=== PATIENT | female | born 1995 | race Caucasian/White ===

== ENCOUNTER 2017-10-05 11:58 | Emergency (ER) | payer OTHER ==
[~2017-10-05] VITALS: Ht 175.3 cm; Wt 93.0 kg
[2017-10-05] MEDS ORDERED: VENTOLIN HFA18 GM INH (12:53)
[2017-10-05] MEDS ORDERED: IBUPROFEN600 MG PO (13:11)
== END 2017-10-05 13:31 | disposition home or self-care (01) ==
LOC: ED 11:58
DX: S93.401A Sprain of unspecified ligament of right ankle, initial encounter (principal); W10.9XXA Fall (on) (from) unspecified stairs and steps, initial encounter; J45.909 Unspecified asthma, uncomplicated; F17.200 Nicotine dependence, unspecified, uncomplicated
CPT/HCPCS: 73610; 99283

== ENCOUNTER 2018-09-02 17:28 | Emergency (ER) | payer OTHER ==
[~2018-09-02] VITALS: Ht 175.3 cm; Wt 95.7 kg
[~2018-09-02 17:28] MED LIST: HYDROCODON-ACE1 EA10 PO; IBUPROFEN600 MG PO; MOTRIN IB200 MG PO; TYLENOL325 MG PO; VENTOLIN HFA18 GM INH
--- OUTSIDE RECORDS SUMMARY | 2018-09-02 17:30 | XMS ---
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 Patty has no Care Guidelines for this patient. Fausto VISIT COUNT (12 MO.) 3 SEAMUS Bruce TOTAL 3 NOTE: Visits indicate total known visits. ED/C VISIT TRACKING (12 MO.) 09/02/2018 17:28 SEAMUS Miranda OR TYPE: Emergency COMPLAINT: - R HAND INJURY 12/26/2017 03:26 SEAMUS Miranda OR TYPE: Emergency COMPLAINT: - ABD PAIN 10/05/2017 11:59 SEAMUS Miranda OR TYPE: Emergency COMPLAINT: - R ANKLE PAIN/INJURY DIAGNOSES: - Fall (on) (from) unspecified stairs and steps, initial encounter - Sprain of unspecified ligament of right ankle, initial encounter - Nicotine dependence, unspecified, uncomplicated - Unspecified asthma, uncomplicated INPATIENT VISIT TRACKING (12 MO.) No inpatient visits to display in this time frame [email or web address]
[2018-09-02] MEDS ORDERED: ONDANSETRON ODT4 MG PO (17:43)
== END 2018-09-02 18:49 | disposition home or self-care (01) ==
LOC: ED 17:28
DX: S62.634A Displaced fracture of distal phalanx of right ring finger, initial encounter for closed fracture (principal); J45.909 Unspecified asthma, uncomplicated; Z88.5 Allergy status to narcotic agent; W23.0XXA Caught, crushed, jammed, or pinched between moving objects, initial encounter
CPT/HCPCS: 73140; 99283

== ENCOUNTER 2018-09-15 15:07 | Emergency (ER) | payer OTHER ==
[~2018-09-15] VITALS: Ht 175.3 cm; Wt 95.7 kg
[~2018-09-15 15:07] MED LIST changes: +ONDANSETRON ODT4 MG PO
--- OUTSIDE RECORDS SUMMARY | 2018-09-15 15:10 | XMS ---
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 Care History Medical/Surgical 09/04/2018 [facility] - Patient is currently established with [facility]. If patient is seen in the ED during business hours. Please contact CHWs at [facility]. Care Recommendation: This patient has had 5 or more Emergency Department visits in the last 12 months.\T\nbsp; Patient requires education on the scope and purpose of the ED as an acute care provider not a Primary Care Provider and should not be utilized for chronic conditions.\T\nbsp; These are guidelines and the provider should exercise clinical judgment when providing care. E.D. VISIT COUNT (12 MO[address] 4 [facility] TOTAL 4 NOTE: Visits indicate total known visits. ED/UCC VISIT TRACKING (12 MO.) 09/15/2018 15:07 SEAMUS Miranda OR TYPE: Emergency COMPLAINT: - ABD PAIN 09/02/2018 17:28 SEAMUS Miranda OR TYPE: Emergency COMPLAINT: - R HAND INJURY DIAGNOSES: - Unspecified injury of right wrist, hand and finger(s), initial encounter - Displaced fracture of distal phalanx of right ring finger, initial encounter for closed fracture - Caught, crushed, jammed, or pinched between moving objects, initial encounter - Unspecified asthma, uncomplicated - Allergy status to narcotic agent status 12/26/2017 03:26 SEAMUS Miranda OR TYPE: Emergency [...] visits to display in this time frame [email or web address]
[2018-09-15] MEDS ORDERED: NORCO 5-325 TA1 EACH PO (18:47)
[2018-09-15] MEDS ORDERED: KEFLEX500 MG PO (18:47)
[2018-09-15] MEDS ORDERED: ONDANSETRON ODT8 MG PO (18:47)
== END 2018-09-15 20:01 | disposition home or self-care (01) ==
LOC: ED 15:07
DX: N12 Tubulo-interstitial nephritis, not specified as acute or chronic (principal); Z88.5 Allergy status to narcotic agent
CPT/HCPCS: 76705; 80053; 81001; 83690; 84703; 85025; 96361; 96365; 96375; 99284-25; J0696; J1170; J1885; J2405; J7030

== ENCOUNTER 2019-10-30 23:25 | Inpatient (IN) | payer OTHER ==
[~2019-10-30] VITALS: Ht 274.3 cm; Wt 109.0 kg
[~2019-10-30 23:25] MED LIST changes: +KEFLEX500 MG PO; +NORCO 5-325 TA1 EACH PO; +ONDANSETRON ODT8 MG PO
[2019-10-31] MEDS ORDERED: PRENATAL VITAM1 EAC6 PO ×2 (03:39→03:43)
[2019-10-31] MEDS ORDERED: VENTOLIN HFA18 GM INH ×2 (03:42→03:43)
--- NOTE | 2019-10-31 11:53 | NUR ---
10/31/19 Yuli3 Shelly Oh 1142-PATIENT ARRIVED TO PACU ON RA AWAKE DENIES PAIN OR NAUSEA. RR EVEN. FUNDUS 1 BELOW UMBILICUS FIRM LIGHT RUBRA DRAINAGE ON BACILIO PAD. [place] CATHETER DRAINING YELLOW URINE. LR WITH 20 PITOCIN INFUSING. 1150-PATIENT FEEDING BABY FBC JESUS SOUZA AT BEDSIDE.
--- NOTE | 2019-11-01 08:58 | PR ---
[facility] [address] [facility] [place], [place] [address] Signed PP Progress Notes Datetime Report Generated by CPN: 11/01/2019 08:58 SUBJECTIVE: [id number] Pain: Within normal limits Nausea/Vomiting: Denies Vital Signs: [id number] Vital Signs: Reviewed; Within Normal Limits Notable Details: PP Hgb/Hct = 10.4/31.3 EXAM: [id number] Abdomen/Uterus: Normal Lochia: Normal Extremities: Normal Incision: Normal IMPRESSION/PLAN/PROCEDURES: [id number] Impression: Normal progression Plan: Continue present management Procedures: None Progress Notes: Doing well, without complaint, tolerating food well, normal post-op tenderness. Will d/c Kwong today and increase activitiy. Signing Physician: Sandy Maldonado MD Copies: ~ *Electronically Signed* 11/01/19 0858 SANDY MALDONADO MD PATIENT NAME: ENRICO SILVERIO PROGRESS NOTE DATE OF : 95 PHYSICIAN: SANDY MALDONADO MD RPT #: [id number] REPORT IS CONFIDENTIAL AND NOT TO BE RELEASED WITHOUT AUTHORIZATION
--- NOTE | 2019-11-01 08:59 | OR ---
[facility] [address] [place], [place] [address] Signed DATE OF OPERATION: 10/31/2019 SURGEON: Fernando Montague MD PREOPERATIVE DIAGNOSIS: Breech presentation, term labor. POSTOPERATIVE DIAGNOSIS: Breech presentation, term labor. PROCEDURE: Primary low-transverse segment section, delivery of live male infant. SURGEON: Fernando Montague MD ASSOCIATE DEAN: Dr. Gentile. ANESTHESIA: Epidural. ESTIMATED BLOOD LOSS: 500 mL. COMPLICATIONS: None. DRAINS: Kwong to bladder. FINDINGS: Live male infant in breech RSA presentation, Apgars 9 and 9. Weight 7 pounds 11 ounces. Normal uterus. Normal tubes and ovaries bilateral. DESCRIPTION OF PROCEDURE: The patient was brought to the operating room, placed in supine position. After adequate epidural anesthesia was obtained, was prepped and draped in usual sterile fashion. Patient already had Kwong catheter in place. A Pfannenstiel skin incision was made with a scalpel and extended through subcutaneous tissue using Bovie. The fascia Electronically Signed By: FERNANDO MONTAGUE MD 11/01/19 0859 PATIENT NAME: ENRICO SILVERIO OPERATIVE REPORT DATE OF : 95 REPORT #: [id number] PHYSICIAN: FERNANDO MONTAGUE MD PCP: TRAVON ALONSO MD REPORT IS CONFIDENTIAL AND NOT TO BE RELEASED WITHOUT AUTHORIZATION [facility] [address] [place], [place] [address], [place] [address] Signed was nicked with scalpel and extended in transverse fashion using curved scissors. The underlying abdominal musculature was bluntly and sharply from the fascia above and below the incision. The abdominal musculature was bluntly and sharply along the midline. The peritoneum was grasped, hemostats elevated, nicked with scissors, extended in vertical fashion using scissors. The Josh self-retaining retractor was inserted into the incision and tightened in place. The lower uterine segment was identified and was noted to be wide from labor, so the lower uterine segment was carefully nicked with scalpel and extended in transverse fashion using finger dissection. The infant was noted to be in breech RSA presentation. The infant's buttocks were easily delivered from the incision. The legs individually delivered and the delivered back up to the shoulders where the arms were individually delivered and the head easily followed. The cord was doubly clamped and cut and the passed off table in good condition to awaiting nurse. Section of cord was obtained and then the placenta manually removed. Uterine cavity was explored a lap pad to remove any retained membranes. An angle stitch of 0 Monocryl was placed one in the incision and a running locking stitch of 0 Monocryl starting at the other end used to close the incision. A 2nd running stitch of 0 Monocryl was used to imbricate the 1st layer. A small amount of bleeding was noted at the right angle, so the finger was placed behind the broad ligament to make sure that the stitch did not go through and a simple stitch of 0 Monocryl placed at the angle and tied in place, this did control the bleeding and the entire pelvis was irrigated, suctioned, examined and any superficial bleeding spots cauterized with Bovie. When good hemostasis was obtained, the Josh self-retaining retractor was removed. A sheet of ACell placed over the lower uterine segment and then, the anterior wall peritoneum was closed using running stitch of 2-0 Vicryl suture. The abdominal musculature was reapproximated using interrupted stitches of 0 Vicryl suture. The abdominal wall incision was irrigated, suctioned and examined, any bleeding spots cauterized with the Bovie. Powdered ACell was then sprinkled on the abdominal musculature and then the fascia closed using two running stitch of 0 Vicryl suture meeting in the midline. Subcutaneous tissue was irrigated, suctioned, examined and any bleeding spots cauterized with the Bovie. Subcutaneous tissue was then closed using interrupted stitches of 3-0 Vicryl suture and skin were reapproximated using skin clips. The patient tolerated the procedure well and went to the recovery room in good condition. The sponge, needle and instrument count were correct at the end of the procedure. Fernando Montague MD MJB/MODL Electronically Signed By: FERNANDO MONTAGUE MD 11/01/19 0859 PATIENT NAME: ENRICO SILVERIO OPERATIVE REPORT DATE OF : 95 REPORT #: [id number] PHYSICIAN: FERNANDO MONTAGUE MD PCP: TRAVON ALONSO MD REPORT IS CONFIDENTIAL AND NOT TO BE RELEASED WITHOUT AUTHORIZATION [address] [address] Signed /[id number] Copies: ~ Electronically Signed By: FERNANDO MONTAGUE MD 11/01/19 0859 PATIENT NAME: ENRICO SILVERIO OPERATIVE REPORT DATE OF : 95 REPORT #: [id number] PHYSICIAN: FERNANDO MONTAGUE MD PCP: TRAVON ALONSO MD REPORT IS CONFIDENTIAL AND NOT TO BE RELEASED WITHOUT AUTHORIZATION
--- NOTE | 2019-11-02 11:50 | PR ---
[facility] [address] [facility] [place] [address] Signed PP Progress Notes Datetime Report Generated by CPN: 11/02/2019 11:49 SUBJECTIVE: [id number] Pain: Within normal limits Nausea/Vomiting: Denies Vital Signs: [id number] Vital Signs: Reviewed; Within Normal Limits Notable Details: PP Hgb/Hct = 10.4/31.3 EXAM: [id number] Abdomen/Uterus: Normal Lochia: Normal Extremities: Normal Incision: Normal IMPRESSION/PLAN/PROCEDURES: [id number] Impression: Normal progression Plan: Discharge Procedures: None Progress Notes: Doing well, ready to go home. Signing Physician: Sandy Maldonado MD Copies: ~ *Electronically Signed* 11/02/19 1149 SANDY MALDONADO MD PATIENT NAME: ENRICO SILVERIO PROGRESS NOTE DATE OF : 95 PHYSICIAN: SANDY MALDONADO MD RPT #: [id number] REPORT IS CONFIDENTIAL AND NOT TO BE RELEASED WITHOUT AUTHORIZATION
== END 2019-11-02 13:30 | disposition home or self-care (01) | DRG 787 ==
LOC: FBC 10-31 00:02
PROVIDERS: ADMIT General Practice
PROC: 00HU33Z Insertion of Infusion Device into Spinal Canal, Percutaneous Approach (ICD-10-PCS; 2019-10-31)
PROC: 3E0R3BZ Introduction of Anesthetic Agent into Spinal Canal, Percutaneous Approach (ICD-10-PCS; 2019-10-31)
PROC: 10D00Z1 Extraction of Products of Conception, Low, Open Approach (ICD-10-PCS; principal; 2019-10-31 10:30)
DX: O32.1XX0 Maternal care for breech presentation, not applicable or unspecified (principal); O99.324 Drug use complicating childbirth; Z37.0 Single live birth; O99.52 Diseases of the respiratory system complicating childbirth; J45.20 Mild intermittent asthma, uncomplicated; Z3A.39 39 weeks gestation of pregnancy; F12.90 Cannabis use, unspecified, uncomplicated; Z87.891 Personal history of nicotine dependence; Z88.5 Allergy status to narcotic agent; Z79.899 Other long term (current) drug therapy
CPT/HCPCS: 01961; 36415; 85027; A9270; J1170; J1644; J1885; J2001; J2405; J2590; J2795; J3010; J3105; J7121

== ENCOUNTER 2021-05-12 08:53 | Day surgery (SDC) | payer OTHER ==
[~2021-05-12] VITALS: Ht 175.3 cm; Wt 103.8 kg
[~2021-05-12 08:53] MED LIST changes: +AUGMENTIN 875-1 EACH PO; +HYDROCODON-ACE1 EA11 PO; +PRENATAL VITAM1 EAC6 PO
--- NOTE | 2021-05-12 10:28 | NUR ---
PT ALERT, ORIENTED AND SUPPORTED BY HER MOTHER. PT HERE FOR FIRST SCOPES. PT SOMEWHAT ANXIOUS, BUT ABLE TO EXPRESS NEEDS AND [facility]. MOTHER WILL REMAIN FOR DC. PT REQUESTED PRAYER, WILL FOLLOW NEEDED
--- NOTE | 2021-05-12 12:01 | NUR ---
05/12/21 1201 BRIANDA TOMLINSON 1140-PATIENT TO PACU ON 6KL VIA MASK. PATEINT IS NONAROUSABLE. STUDENT PREFORMING CHIN LIFT. 1144-PATIENT NONAROUSABLE TO TACTILE SITMULI. HOB ELEVATED, HEAD REPOSTIONED, RN DOING JAW THRUST. 1145-SALES DATA ANALYST PUTS IN ORAL AIRWAY 1146-ORAL AIRWAY REMOVED. PATIENT AWAKES TO PAINFUL STIMULI. AIRWAY PATENT. JAW THRUST STOPPED. O2 TITRATED OFF. 1150-PATIENT IS DROWSY. DENIES PAIN AND NAUSEA. RESP EVEN AND UNLABORED. O2 SATS IN THE HIGH 90'S TO 100% ON RA. 1155-PATIENT DROWSY. STATES HER THROAT HURTS. DENIES PAIN AT SURGICAL SITE. DENIES NAUSEA. PATIENT TAKING SIPS OF WATER.
--- NOTE | 2021-05-12 13:06 | OR ---
[facility] [address] [place], [place] [address] Signed DATE OF OPERATION: 05/12/2021 SURGEON: Winston Alcaraz MD LOCATION: [facility]. PREOPERATIVE DIAGNOSIS: Left facial mass. POSTOPERATIVE DIAGNOSIS: Left facial mass. PROCEDURE: Excision of left facial mass. ANESTHESIA: General LMA; SCREEN TENDER, Karolina/Allan. PREOPERATIVE HISTORY: Karolina is a 26-year-old young lady with a left facial mass for several months. This has been persistent, very tender, associated with some anterior cervical lymph nodes with persistence despite several courses of antibiotics. She has no obvious site of primary infection and she is taken to the operating room for the above-mentioned procedures. OPERATIVE PROCEDURE AND FINDINGS: After informed consent, the patient was taken to the operating room, placed in the supine position where general LMA anesthesia was induced. The patient and procedure were verified. Left facial mass in question was identified, marked with a marking pencil, so it was just in front of the left tragus measured about 2 cm in greatest diameter. The head and neck turned to the right. Left face sterilely prepped and draped. Incision was marked over the mass just in front of the tragus in the superior inferior direction. 1% lidocaine with epi was injected in the skin. Incision was made and a combination of blunt and sharp dissection carried down to find the mass deep to the fascia appeared to be in the substance of the parotid gland. Care was taken to avoid facial nerve branches. The mass was dissected free. It was a granular appearing grayish colored mass appeared to be completely excised about 2 cm in greatest diameter. The specimen was sent to pathology for lymphoma handling permanent sections. Hemostasis was verified. The incision was then closed with 4-0 interrupted Vicryl in the deep layer, subcu layer and 5-0 running nylon on the skin. The skin was cleansed. Neosporin was Electronically Signed By: WINSTON ALCARAZ MD 05/12/21 1306 PATIENT NAME: KAROLINA SILVERIO OPERATIVE REPORT DATE OF : 95 REPORT #: [id number] PHYSICIAN: WINSTON ALCARAZ MD PCP: TRAVON ALONSO MD REPORT IS CONFIDENTIAL AND NOT TO BE RELEASED WITHOUT AUTHORIZATION [address] [address] Signed applied. The patient was then awakened, extubated, and transported to the recovery room in good condition. COMPLICATIONS: None. BLOOD LOSS: Minimal. SPECIMEN: To pathology. DRAINS: None. Winston Alcaraz MD GC/MODL /[id number] Copies: ~ Electronically Signed By: WINSTON ALCARAZ MD 05/12/21 1306 PATIENT NAME: KAROLINA SILVERIO OPERATIVE REPORT DATE OF : 95 REPORT #: [id number] PHYSICIAN: WINSTON ALCARAZ MD PCP: TRAVON ALONSO MD REPORT IS CONFIDENTIAL AND NOT TO BE RELEASED WITHOUT AUTHORIZATION
--- NOTE | 2021-05-12 13:07 | NUR ---
1250: PATIENT BACK IN DAY SURGERY ROOM FROM PACU. RATES PAIN 3/10. LEFT CHEEK INCISION WITH BACITRACIN OINTMENT WNL. VS CHECKED. PATIENT DROWSY. SCDs ON. IV SITE WNL. SODA AT BEDSIDE. CALL LIGHT WITHIN REACH. SIGNIFICANT OTHER AT BEDSIDE.
--- NOTE | 2021-05-12 13:44 | NUR ---
1320: PT COMFORTABLE IN STRETCHER AT THIS TIME. REPORTS FEELING URGE TO VOID. DANGLES AT THE BEDSIDE, JOSE WELL. DENIES DIZZINESS AND SOB. AMBULATES TO BR WITH STANDBY ASSIST FROM THIS RN, STEADY GAIT. SUCCESSFUL FIRST POST OP VOID, 600ML. BACK TO ROOM 11. NO FURTHER NEEDS VOICED, CALL LIGHT WITHIN REACH
[2021-05-12] MEDS ORDERED: HYDROCODON-ACE1 EA10 PO (13:49)
--- NOTE | 2021-05-12 14:01 | NUR ---
1355: PT SITS UP STAIGHT IN BED. COMFORTABLE AND REPORTS JOSE PAIN LEVEL, 5/10. VSS, RESP EVEN AND UNLABORED. BP 95/65, DENIES DIZZINESS, SOB AND NAUSEA. REPORTS BASELINE FOR HER. INCISION INTACT, NO DRAINAGE NOTED. PT TO DRESS FOR DC. CALL LIGHT WITHIN REACH
--- NOTE | 2021-05-12 14:20 | NUR ---
1405: DC INSTRUCTIONS PROVIDED AND DISCUSSED ORDERED. PT VOICES UNDERSTANDING AND DENIES QUESTIONS AND CONCERNS. WHEELED OFF OF UNIT BY THIS RN. TRANSFERS INTO VEHICLE INDEPENDENTLY AND APPROPRIATELY
== END 2021-05-12 14:05 | disposition home or self-care (01) ==
LOC: DS 08:53 → OPS 08:53 → DS 10:45 → OPS 10:45
PROVIDERS: ATTEND Otolaryngology
PROC: 0HB1XZZ Excision of Face Skin, External Approach (ICD-10-PCS; principal; 2021-05-12 10:45)
DX: R22.0 Localized swelling, mass and lump, head (principal); I88.9 Nonspecific lymphadenitis, unspecified
CPT/HCPCS: 00300; 88184; 88185; 88305; 88312; 88365; J0131; J1100; J1885; J2001; J2250; J2405; J2704; J3010; J7121

== ENCOUNTER 2022-01-09 19:00 | Inpatient (IN) | payer OTHER ==
[~2022-01-09] VITALS: Ht 175.3 cm; Wt 98.4 kg
--- NOTE | ~2022-01-09 | OR ---
[facility] [address] [place], [place] [address] Draft DATE OF OPERATION: 01/09/2022 SURGEON: Marva Key MD HEEL CEMENTER MACHINE: Jessie Ferris DO PREOPERATIVE DIAGNOSIS: Term , labor, previous section. POSTOPERATIVE DIAGNOSIS: Term , labor, previous section, delivered. PROCEDURE: Repeat section, low segment transverse uterine incision. ANESTHESIA: Spinal. ESTIMATED BLOOD LOSS: 700 mL. DRAINS: Kwong catheter. INDICATIONS AND FINDINGS: The patient is a 26-year-old female, 3, para 2, who presented to Labor and Delivery in early active labor at 37 and 2/7th weeks. She had a with her last child secondary to breech. The patient was consented and taken to the operating room, where she was delivered of a little girl via lower segment transverse uterine incision from the ROT position with Apgars of 9 and 10 and weight of 6 pounds. The uterus, tubes, ovaries, and placenta were normal. DESCRIPTION OF PROCEDURE: The patient was prepped and draped in the supine position. A repeat Pfannenstiel skin incision was made and carried down through the fascia. This was extended laterally. The inferior and superior fascial flaps were then created. The muscles were bluntly divided and the peritoneum entered sharply and the incision extended bluntly. The PATIENT NAME: ENRICO SILVERIO OPERATIVE REPORT DATE OF : 95 REPORT #: [id number] PHYSICIAN: MARVA KEY MD PCP: TRAVON ALONSO MD REPORT IS CONFIDENTIAL AND NOT TO BE RELEASED WITHOUT AUTHORIZATION [facility] [address] [place], [place] [address] Draft Josh retractor was then placed. The uterine incision was made at the upper aspect of the peritoneal reflection and then extended superiorly and inferiorly bluntly. Membranes were artificially ruptured. The baby was delivered with the above findings and handed off to the pediatric staff in attendance. The placenta was removed manually and the uterus explored with a lap tape assuring no remaining fragments. The edges of the incision were identified and the uterus was closed in 2 layers using 0 Monocryl. The first layer was a running locking stitch and second was a vertical imbricating stitch. Good hemostasis was noted. There was a large amount of blood and fluid in the abdomen and this was taken out carefully and the gutters cleaned as well as behind the uterus. Following this, the retractor was removed and the peritoneum identified. The peritoneum was closed with a running suture of 3-0 Vicryl. The muscles were brought together with interrupted sutures of 0 Vicryl. The bleeding points were controlled with cautery. This layer was irrigated and inspected and good hemostasis was noted. The fascia was closed from each angle to the midline with a running suture of 0 Vicryl. The subcu space was irrigated and bleeding points controlled with cautery. The subcu was closed with interrupted sutures of 3-0 Vicryl. The skin was closed with sebastian. All sponge and needle counts were correct. She tolerated the procedure well and was taken to the recovery room in good condition. Marva Key MD PJW/BASIL /[id number] cc: MD Jessie Schwartz DO Copies: SANDY MALDONADO MD, ERICA M DO ~ PATIENT NAME: ENRICO SILVERIO OPERATIVE REPORT DATE OF : 95 REPORT #: [id number] PHYSICIAN: MARVA KEY MD PCP: TRAVON ALONSO MD REPORT IS CONFIDENTIAL AND NOT TO BE RELEASED WITHOUT AUTHORIZATION
--- NOTE | 2022-01-10 00:58 | NUR ---
01/10/22 0058 FuGabi 6355-PATIENT ARRIVES TO ROOM 104 ON RA. PATIENT IS AWAKE. RESP EVEN AND UNLABORED. IV IN LEFT HAND AND WNL. IV FLUID INFUSING. DENIES PAIN AND NAUSEA. PARTNER AND BABY IN ROOM. BED RAILS UP AND BED PLUGGED IN. 0005-PATIENT AWAKE AND DOING WELL. VSS. 02 SATS IN THE HIGH 90'S ON RA. RESP EVEN AND UNLABORED. PARTNER AT BEDSIDE. DENIES PAIN AND NAUSEA. 0010-PATEINT FEEDING BABY. DENIES PAIN AND NAUSEA. HOB ELEVEATED. FUNDAL CHECK DONE WITH FBC RN. 0025-PATIENT FEEDING BABY. RESP EVEN AND UNLABORED. DENIES PAIN AND NAUSEA. PATIENT HOLDING BABY. PARTNER AT BESIDE. 0040-REPORT GIVEN TO FBC RN. PATIENT DOING WELL. RESP EVEN AND UNLABORED. DENIES PAIN AND NAUSEA. PATIENT HOLDING BABY. PARTNER IN ROOM.
--- NOTE | 2022-01-10 07:46 | PR ---
[facility] [address] [facility] [place], [place] [address] Signed PP Progress Notes Datetime Report Generated by RIGOBERTO: 01/10/2022 07:46 SUBJECTIVE: [id number] Pain: Within Normal Limits Nausea/Vomiting: Denies Flatus: No Vital Signs: [id number] Vital Signs: Reviewed; Within Normal Limits Cardiovascular: Normal Respiratory: Not Done Abdomen/Uterus: Abnormal Lochia: Normal Vulva/Perineum: Not Done Breasts: Not Done CVA Tenderness: Not Done Extremities: Normal Incision: Normal Progress: Abnormal Exam Comments: Abdomen with active BS. Fundus firm, NT @ U-1. H/H 11.8/35.8, WBC 16.5, plat 207k IMPRESSION/PLAN/PROCEDURES: [id number] Impression: Normal Progression; Difficulties Plan: Continue Present Management Procedures: None Progress Notes: Doing well. Will D/C with increased ambulation this afternoon. Signing Physician: Marva Key MD Copies: ~ *Electronically Signed* 01/10/22 0746 MARVA KEY MD PATIENT NAME: ENRICO SILVERIO PROGRESS NOTE DATE OF : 95 PHYSICIAN: MARVA KEY MD RPT #: [id number] REPORT IS CONFIDENTIAL AND NOT TO BE RELEASED WITHOUT AUTHORIZATION
--- NOTE | 2022-01-11 08:24 | PR ---
[facility] [address] [facility] [place], [place] [address] Signed PP Progress Notes Datetime Report Generated by CPN: 01/11/2022 08:24 SUBJECTIVE: [id number] Pain: Within Normal Limits Pain Comments: little sleep last pm Nausea/Vomiting: Denies Flatus: Yes Vital Signs: [id number] Vital Signs: Reviewed; Within Normal Limits EXAM: Ongoing Cardiovascular: Normal Respiratory: Normal Abdomen/Uterus: Abnormal Lochia: Normal Vulva/Perineum: Not Done Breasts: Not Done CVA Tenderness: Not Done Extremities: Normal Incision: Normal Progress: Normal Exam Comments: Abdomen with active BS. Fundus firm, NT @ U-2. IMPRESSION/PLAN/PROCEDURES: [id number] Impression: Normal Progression Plan: Discharge Procedures: None Progress Notes: Doing well. She will be 48 hrs tonight but desires D/C today. Signing Physician: Marva Key MD Copies: ~ *Electronically Signed* 01/11/22823 MARVA KEY MD PATIENT NAME: ENRICO SILVERIO PROGRESS NOTE DATE OF : 95 PHYSICIAN: MARVA KEY MD RPT #: [id number] REPORT IS CONFIDENTIAL AND NOT TO BE RELEASED WITHOUT AUTHORIZATION
== END 2022-01-11 11:57 | disposition home or self-care (01) | DRG 787 ==
LOC: FBCO 19:00 → FBC 21:40
PROVIDERS: ADMIT Obstetrics & Gynecology; ATTEND Obstetrics & Gynecology
PROC: 10D00Z1 Extraction of Products of Conception, Low, Open Approach (ICD-10-PCS; principal; 2022-01-10)
DX: O34.211 Maternal care for low transverse scar from previous cesarean delivery (principal); O99.324 Drug use complicating childbirth; Z3A.37 37 weeks gestation of pregnancy; Z20.822 Contact with and (suspected) exposure to COVID-19; Z37.0 Single live birth; Z67.10 Type A blood, Rh positive; Z87.891 Personal history of nicotine dependence; Z90.49 Acquired absence of other specified parts of digestive tract; F12.90 Cannabis use, unspecified, uncomplicated; F15.90 Other stimulant use, unspecified, uncomplicated
CPT/HCPCS: 01961; 36415; 76942; 85027; 86850; 86900; 86901; 87502; A9270; C9803; J0456; J0690; J1100; J1885; J2001; J2274; J2370; J2405; J2550; J2590; J2795; J3010; J7121; U0003

== ENCOUNTER 2023-03-14 18:30 | Emergency (ER) | payer OTHER ==
[~2023-03-14] VITALS: Ht 177.8 cm; Wt 102.1 kg
[2023-03-14] MEDS ORDERED: VISTARIL25 MG PO (20:44)
[2023-03-14] MEDS ORDERED: SERTRALINE HCL150 MG PO (20:45)
[2023-03-14] MEDS ORDERED: VENTOLIN HFA18 GM INH (20:45)
[2023-03-14] MEDS ORDERED: IMITREX100 MG PO (20:46)
[2023-03-14] MEDS ORDERED: PROMETHAZINE HC25 M1 PO (20:47)
[2023-03-14] MEDS ORDERED: HYDROCODON-ACE1 EA10 PO (21:35)
[2023-03-14 22:23] VITALS: BP 122/81
== END 2023-03-14 22:26 | disposition home or self-care (01) ==
LOC: ED 18:30
DX: S70.02XA Contusion of left hip, initial encounter (principal); S70.12XA Contusion of left thigh, initial encounter; S83.92XA Sprain of unspecified site of left knee, initial encounter; J45.909 Unspecified asthma, uncomplicated; Z87.891 Personal history of nicotine dependence; Z88.5 Allergy status to narcotic agent; Z79.899 Other long term (current) drug therapy; Y93.21 Activity, ice skating; X50.1XXA Overexertion from prolonged static or awkward postures, initial encounter
CPT/HCPCS: 73502; 73552; 73560; A9270

== ENCOUNTER 2024-10-26 08:52 | Emergency (ER) | payer OTHER ==
[~2024-10-26] VITALS: Ht 177.8 cm; Wt 96.0 kg
[~2024-10-26 08:52] MED LIST changes: +IMITREX100 MG PO; +PROMETHAZINE HC25 M1 PO; +SERTRALINE HCL150 MG PO; +VISTARIL25 MG PO
[2024-10-26] MEDS ORDERED: BUPROPION XL150 MG PO (09:12)
[2024-10-26 10:22] VITALS: BP 113/73
== END 2024-10-26 10:17 | disposition home or self-care (01) ==
LOC: ED 08:52
DX: S93.401A Sprain of unspecified ligament of right ankle, initial encounter (principal); J45.909 Unspecified asthma, uncomplicated; Z87.891 Personal history of nicotine dependence; Z88.5 Allergy status to narcotic agent; Z79.899 Other long term (current) drug therapy; W10.1XXA Fall (on)(from) sidewalk curb, initial encounter
CPT/HCPCS: 73610; 99283